=== PATIENT | male | born 1930 | race Caucasian/White ===

== ENCOUNTER 2021-11-26 11:55 | Emergency (ER) | payer MEDICARE, BC ==
[~2021-11-26] VITALS: Ht 167.6 cm; Wt 88.3 kg
[~2021-11-26 11:55] MED LIST: BUDE10.2 INH; LEVA15HF4 INH; LEVO50TA8 PO; LEVO750T21 PO; METF500T PO; PRED10TA23 PO
[2021-11-26 12:07] VITALS: BP 134/55
== END 2021-11-26 18:00 | disposition left against medical advice (07) ==
LOC: ER 11:55
DX: J00 Acute nasopharyngitis [common cold] (principal); Z20.822 Contact with and (suspected) exposure to COVID-19; R05.9 Cough, unspecified; Z53.21 Procedure and treatment not carried out due to patient leaving prior to being seen by health care provider
CPT/HCPCS: 71045; 87502; 87503; 87811